=== PATIENT | female | born 1980 | race Caucasian/White ===

== ENCOUNTER 2019-03-16 21:47 | Emergency (ER) | payer SELFPAY ==
[~2019-03-16] VITALS: Ht 157.5 cm; Wt 63.5 kg
[2019-03-16 22:03] VITALS: BP 111/74
[2019-03-16] MEDS ORDERED: DexAMETHasone SOD PHOS 10MG/1ML VIAL INJ IM ONE (23:15)
[2019-03-16] MEDS ORDERED: ACETAMINOPHEN/CODEINE#3 (300/30mg) TAB PO ONE (23:15)
== END 2019-03-16 23:39 | disposition home or self-care (01) ==
LOC: ER 21:49
DX: J06.9 Acute upper respiratory infection, unspecified (principal); K08.89 Other specified disorders of teeth and supporting structures
CPT/HCPCS: 96372; 99283; J1100